=== PATIENT | male | born 1965 | race Caucasian/White ===

== ENCOUNTER 2017-02-10 11:03 | Emergency (ER) | payer BC, SELFPAY ==
[2017-02-10] MEDS ORDERED: Ibuprofen 800 MG TAB ONE (11:15)
[2017-02-10] MEDS ORDERED: Cephalexin 250 MG CAP ONE (11:23)
[2017-02-10 11:44] LABS: #Basophils 0.1 thou/uL (0.0-0.2); #Eosinphils 0.5 thou/uL (0.0-0.7); #Monocytes 0.4 thou/uL (0.11-0.59); #Neutrophils 1.6 thou/uL (1.40-6.50); %Basophils 1.8 % (0.0-1.0); %Eosinophils 14.4 % (0.0-10.0); %Lymphocytes 28.6 % (21.0-51.0); %Neutrophils 45.2 % (42.0-75.0); Hemoglobin 13.9 g/dL (14.0-18.0); Mean Corpuscular HGB CONC 34.9 g/dL (32.0-36.0); Mean Corpuscular Hemoglobin 32.8 pg (27.0-31.0); Mean Corpuscular Volume 93.8 fl (80.0-94.0); Mean Platelet Volume 14.9 fL (7.4-10.4); Platelet Count 81 thou/uL (130-400); Red Blood Cell (RBC) Count 4.24 mill/uL (4.70-6.10); White Blood Cell (WBC) Count 3.5 thou/uL (4.8-10.8)
[2017-02-10 11:45] LABS: ALT (SGPT) 27 U/L (8-55); AST (SGOT) 49 U/L (5-34); Albumin 3.6 g/dL (3.5-5.0); Alkaline Phosphatase 77 U/L (40-150); Anion Gap 13 mmol/L (10-20); BUN (Urea Nitrogen) 15 mg/dL (8.4-25.7); Bilirubin, Total 1.6 mg/dL (0.2-1.2); Calc. Creatinine Clearance 0 mL/min (70-130); Calcium 8.6 mg/dL (7.8-10.44); Carbon Dioxide 23 mmol/L (22-29); Chloride 109 mmol/L (98-107); Estimated GFR-MDRD Greater than 90; Glucose 91 mg/dL (70-105); Potassium 3.9 mmol/L (3.5-5.1); Protein, Total 7.6 g/dL (6.0-8.3); Sodium 141 mmol/L (136-145)
[2017-02-10 11:52] LABS: INR-International Normal Ratio 1.2; PTT 32.8 SEC (22.9-36.1); Prothrombin Time 15.3 SEC (12.0-14.7)
[2017-02-10 11:53] LABS: D-Dimer Test 1.16 *mcg/mL (0.27-0.43)
== END 2017-02-10 12:20 | disposition home or self-care (01) ==
LOC: BURERS 11:03
DX: T63.001A Toxic effect of unspecified snake venom, accidental (unintentional), initial encounter (principal); I10 Essential (primary) hypertension; F17.210 Nicotine dependence, cigarettes, uncomplicated
CPT/HCPCS: 36415; 80053; 82550; 83605; 85025; 85379; 85384; 85610; 85730; 99284

== ENCOUNTER 2018-01-04 13:13 | Emergency (ER) | payer OTHER ==
[2018-01-04 14:18] LABS: #Basophils 0.1 thou/uL (0.0-0.2); #Eosinphils 0.3 thou/uL (0.0-0.7); #Lymphocytes 1.5 thou/uL (1.20-3.40); #Monocytes 0.7 thou/uL (0.11-0.59); %Basophils 1.3 % (0.0-1.0); %Eosinophils 3.6 % (0.0-10.0); %Lymphocytes 19.8 % (21.0-51.0); %Neutrophils 66.3 % (42.0-75.0); ALT (SGPT) 28 U/L (8-55); AST (SGOT) 43 U/L (5-34); Albumin 3.1 g/dL (3.5-5.0); Alkaline Phosphatase 85 U/L (40-150); Anion Gap 13 mmol/L (10-20); BUN (Urea Nitrogen) 8 mg/dL (8.4-25.7); Bilirubin, Total 1.9 mg/dL (0.2-1.2); Calc. Creatinine Clearance 0 mL/min (70-130); Calcium 8.3 mg/dL (7.8-10.44); Carbon Dioxide 22 mmol/L (22-29); Chloride 107 mmol/L (98-107); Estimated GFR-MDRD Greater than 90; Globulin 4.9 g/dL (2.4-3.5); Glucose 97 mg/dL (70-105); Mean Corpuscular HGB CONC 35.8 g/dL (32.0-36.0); Mean Corpuscular Hemoglobin 31.4 pg (27.0-31.0); Mean Corpuscular Volume 87.8 fl (80.0-94.0); Mean Platelet Volume 9.2 fL (7.4-10.4); PLT Morphology Comment PREVIOUS PLATELET COUNT OF 81; Platelet Count 101 thou/uL (130-400); Potassium 3.8 mmol/L (3.5-5.1); RBC Distribution Width 12.4 % (11.5-14.5); Red Blood Cell (RBC) Count 4.45 mill/uL (4.70-6.10); Sodium 138 mmol/L (136-145); White Blood Cell (WBC) Count 7.6 thou/uL (4.8-10.8)
[2018-01-04 14:20] LABS: MDiff Complete? YES
[2018-01-04] MEDS ORDERED: Sodium Chloride 0.9% 100 ML ONE (14:50)
[2018-01-04] MEDS ORDERED: Piperacillin/Tazobactam 3.375 GM VIAL ONE (14:50)
[2018-01-04] MEDS ORDERED: Ketorolac Tromethamine 30 MG/ML VIAL ONE (14:50)
[2018-01-04] MEDS ORDERED: Fentanyl 100 MCG/2 ML VIAL ONE (14:50)
--- NOTE | 2018-01-04 20:47 | RAD ---
LEFT ANKLE 3 VIEWS: Date: 01/04/18 No acute fracture seen. Soft tissue swelling is seen around the ankle. The joint itself appears rajeev l. IMPRESSION: Soft tissue swelling. POS: HOME
== END 2018-01-04 18:15 | disposition home or self-care (01) ==
LOC: BURERS 13:13
DX: S93.402A Sprain of unspecified ligament of left ankle, initial encounter (principal); L03.116 Cellulitis of left lower limb; I10 Essential (primary) hypertension; F17.210 Nicotine dependence, cigarettes, uncomplicated; X50.1XXA Overexertion from prolonged static or awkward postures, initial encounter
CPT/HCPCS: 36415; 80053; 85025; 85379; 87040; 96365; 96375; J1885; J2543; J3010; J7050

== ENCOUNTER 2018-03-18 10:28 | Emergency (ER) | payer OTHER ==
[2018-03-18 11:49] LABS: #Basophils 0.1 thou/uL (0.0-0.2); #Eosinphils 0.1 thou/uL (0.0-0.7); #Lymphocytes 1.2 thou/uL (1.20-3.40); #Monocytes 1.3 thou/uL (0.11-0.59); #Neutrophils 6.6 thou/uL (1.40-6.50); Hemoglobin 13.5 g/dL (14.0-18.0); Red Blood Cell (RBC) Count 4.29 mill/uL (4.70-6.10); White Blood Cell (WBC) Count 9.3 thou/uL (4.8-10.8)
[2018-03-18 11:51] LABS: %Basophils 0.7 % (0.0-1.0); %Eosinophils 1.5 % (0.0-10.0); %Lymphocytes 12.8 % (21.0-51.0); %Monocytes 13.5 % (0.0-10.0); %Neutrophils 71.6 % (42.0-75.0); Mean Corpuscular HGB CONC 37.5 g/dL (32.0-36.0); Mean Corpuscular Hemoglobin 31.5 pg (27.0-31.0); Mean Platelet Volume 9.2 fL (7.4-10.4); Platelet Count 61 thou/uL (130-400); RBC Distribution Width 11.7 % (11.5-14.5)
== END 2018-03-18 12:26 | disposition home or self-care (01) ==
LOC: BURERS 10:28
DX: I87.2 Venous insufficiency (chronic) (peripheral) (principal); I10 Essential (primary) hypertension; F17.210 Nicotine dependence, cigarettes, uncomplicated
CPT/HCPCS: 36415; 85025; 99283